=== PATIENT | male | born 1960 | race Caucasian/White ===

== ENCOUNTER 2017-06-18 12:24 | Observation (INO) ==
[2017-06-18] MEDS ORDERED: SALINE FLUSH 10ml SYRINGE IVF PRN (12:34)
--- NOTE | 2017-06-18 12:59 | Emergency Department Report ---
Chest Pain HPI - General Chief Complaint: Chest Pain <Basim Hdz Q - 06/19/17 07:10> Stated Complaint: CP <Basmi Hdz Q - 06/19/17 07:10> Time Seen by Provider: 06/18/17 12:30 <Basim Hdz Q - 06/19/17 07:10> Source: patient, family, EMS, old records reviewed <Shahida Coles E - 12:59> Mode of arrival: wheelchair <Shahida Coles E - 06/18/17 12:59> Limitations: no limitations <Shahida Coles E - 06/18/17 12:59> - History of Present Illness HPI narrative: Patient presents by EMS with complaints of chest pain to the left sternal area that started approximately 90 minutes ago. Patient states pain came on suddenly while he was "scrubbing the floors" however states he was not exerting himself. Pain is constant for the past 90 minutes with intensity changes periodically. Pain ranges from a 4 to an 8. Patient took 3 ntg before EMS arrival which states did not help and took one 81 mg asa. Was given 3 additional 81 mg asa by EMS; ntg was not repeated by EMS. 3 additional NTG were given by ER an hour after initial ntg and again no relief. Baseline pain is 3-4/10 and maximum pain is 8/10 Patient states there is nothing that he remembers that makes the pain worse however when asked to deep breathe he does state that the pain is much worse with inspiration. Pain does not radiate at this time. Patient states the intensity increases for about 15 seconds and then subsides. During the time of my exam, patient does have an episode of the intense chest pain where he suddenly appears uncomfortable and this lasts about 15 seconds and then subsides. Patient states had been short of air and experienced nausea earlier but not now. Denies diaphoresis. Patient states did have stents placed approximately 5 years ago and has not had chest pain since that time. Patient last saw Dr. Pool out 2 weeks ago or a general checkup. He did have a CVA during the same hospitalization when he received the stents that resulted in some left facial residual that is noted upon exam. Patient's son and patient both say that this is baseline for him. No other neurological changes. He does state that he had colon cancer within the past 2 years that resulted in a temporary colostomy that has since been reversed. He denies any history of pulmonary embolism . Patient also reports hx of "fluid around the heart" <Shahida Coles - 06/18/17 13:52> Occurred At: home <Shahida Coles - 06/18/17 12:59> Onset (ago): minute(s) (90) <Shahida Coles 06/18/17 12:59> - Related Data Home Medications Medication Instructions Recorded Confirmed Nitroglycerin 0.4 mg SL Q5MIN3 PRN #0 12/10/09 06/18/17 Aspirin [Aspirin EC] 81 mg PO DAILY 06/18/17 06/18/17 Atenolol [Tenormin] 25 mg PO DAILY 06/18/17 06/18/17 Atorvastatin Calcium [Atorvastatin 10 mg PO HS 06/18/17 06/18/17 Calcium] Escitalopram [Lexapro] 10 mg PO BID 06/18/17 06/18/17 Insulin Aspart [NovoLOG] 6 unit SQ TIDWM 06/18/17 06/18/17 Insulin Detemir [Levemir] 16 unit SQ HS 06/18/17 06/18/17 Lisinopril [Prinivil] 5 mg PO DAILY 06/18/17 06/18/17 Metformin HCl [Metformin HCl] 1,000 mg PO BID 06/18/17 06/18/17 <Basim Hdz Q - 06/19/17 07:10> Allergies Allergy/AdvReac Type Severity Reaction Status Date / Time No Known Drug Allergies Allergy Unknown Verified 06/18/17 13:12 <Basim Hdz Q - 06/19/17 07:10> Review of Systems All systems: reviewed and negative except as stated <Shahida Coles 13:59> Constitutional: Reports: as per HPI. Denies: fever, chills <Shahida Coles 06/18/17 13:59> Eyes: Denies: eye pain, eye discharge <Shahida Coles 06/18/17 13:59> ENT: Denies: ear pain, throat pain <Shahida Coles 06/18/17 13:59> Cardiovascular: Reports: as per HPI, chest pain. Denies: palpitations, syncope <Shahida Coles 06/18/17 13:59> Respiratory: Denies: cough, dyspnea <Shahida Coles 06/18/17 13:59> Gastrointestinal: Denies: abdominal pain, nausea, vomiting <Shahida Coles 06/18/17 13:59> Genitourinary: Denies: urgency, dysuria <Shahida Coles 06/18/17 13:59> Musculoskeletal: Denies: back pain, joint swelling <Shahida Coles 13:59> Neurological: Denies: headache, weakness <Shahida Coles 06/18/17 13:59> Endocrine: Denies: fatigue <Shahida Coles 06/18/17 13:59> FORMERLY [facility] Patient Stated Medical History Cerebrovascular Accident Yes Cardiac Arrhythmia No Congestive Heart Failure No Hypertension Yes Myocardial Infarction No Other Cardiology Yes: hx fluid around heart Diabetes Mellitus Type 1 No Diabetes Mellitus Type 2 Yes Gastroesophageal Reflux Yes Disease Hx Kidney Stones Yes Other Musculoskeletal Yes: shattered L big toe; plate and 3 screws Depression Yes Recreational Drug Use No <Basim Hdz Q 06/19/17 07:10> Patient Stated Medical History Cerebrovascular Accident Yes Cardiac Arrhythmia No Congestive Heart Failure No Hypertension Yes Myocardial Infarction No Other Cardiology Yes: hx fluid around heart Diabetes Mellitus Type 1 No Diabetes Mellitus Type 2 Yes Gastroesophageal Reflux Yes Disease Hx Kidney Stones Yes Other Musculoskeletal Yes: shattered L big toe; plate and 3 screws Depression Yes Recreational Drug Use No <Shahida Coles 06/18/17 13:39> Physical Exam - Limitations Limitations: no limitations <Shahida Coles 06/18/17 13:59> - General General appearance: alert, in no apparent distress <Shahida Coles 13:59> - Normal Exams: Head:: Normocephalic without trauma <Shahida Coles 06/18/17 13:59> Eyes:: Pupils are PERRLA w/ EOMI <Shahida Coles 06/18/17 13:59> ENMT:: No facial trauma, nasal exudates, pharyngeal erythema, or exudates are noted <SanketShahida E 06/18/17 13:59> Neck:: Full range of motion, without adenopathy, JVD, bruits or thyromegaly < Coles,Shahida John 06/18/17 13:59> Chest/Respirations:: Clear all [place], with good airflow <Coles,Shahida John 06/18/17 13:59> Cardiovascular:: Regular rate and rhythm, without murmur or gallop, capillary refill <Coles,Shahida John 06/18/17 13:59> Abdomen:: Bowel sounds positive, soft, non-tender, non-distended <Shahida Coles John 06/18/17 13:59> Musculoskeletal:: No tenderness, or deformity noted, good range of motion < Coles,Shahida John 06/18/17 13:59> Neurological:: Patient is alert, and oriented, cranial nerves, motor/sensory/ cerebellar, exams w/o gross deficits, to observation <Shahida Coles 06/18 13:59> Psychiatric:: Patient exhibits, appropriate attention, emotion and affect < Coles,Shahida John 06/18/17 13:59> - Expanded Skin Exam Type of lesion: Present: other (chronic wound to left second toe; followed by wound care ) <SanketShahida E 06/18/17 13:59> Course Course Narrative: Patient's chest pain was never below a 3/10 following a total of 6 nitroglycerin. eKG showed no acute changes. Patient's troponin was negative. D-dimer was also normal. Chest x-ray also did not show any infiltrate or abnormalities. Discussed case with Dr. Pool who feels the patient needs to be admitted for observation, would like hospitalist service to admit in consult him. <Shahida Coles 06/18/17 13:48> - Consultations Consultation #1: Dr Pool <Shahida Coles 06/18/17 13:48> Time: 13:35 (admit to hospitalist/ consult ) <Shahida Coles 06/18/17 13: 48> Consultation #2: Dr Vilchis <Shahida Coles - 06/18/17 13:54> Time: 13:50 (will admit ) <Shahida Coles - 06/18/17 13:54> Vital Signs Temperature 98.9 F 06/18/17 12:43 Pulse Rate 65 06/18/17 12:43 Respiratory Rate 24 06/18/17 12:43 Blood Pressure 165/82 H 06/18/17 12:43 Pulse Oximetry 98 06/18/17 12:43 Temperature 97.5 F 06/19/17 00:00 Pulse Rate 59 L 06/19/17 04:01 Respiratory Rate 16 06/19/17 04:01 Blood Pressure 159/94 H 06/19/17 04:01 Pulse Oximetry 97 06/19/17 04:01 <Basim Hdz - 06/19/17 07:10> Chest Pain - MDM Narrative Medical decision making narrative: CP 3/10 at baseline after ntg x6 and asa 324. Will admit for observation <Shahida Coles - 06/18/17 13:54> - Differential Diagnosis Likely: stable angina, unstable angina pectoris, atypical chest pain, costochondritis, chest pain <Shahida Coles - 06/18/17 13:54> - Medical Records Data Attestation: I reviewed the patient's medical records. <Shahida Coles - 13:54> - Lab Data Attestation: I reviewed the patient's lab results. <Robe Colesnie John - 13:54> Result diagrams: 06/19/17 06:01 06/19/17 06:01 <Basim Hdz - 06/19/17 07:10> Lab Results 06/18/17 06/18/17 06/18/17 Range/Units 12:42 12:51 12:51 WBC 9.4 (4.5-11.0) T/MM3 RBC 4.01 L (4.50-5.90) M/MM3 Hgb 13.1 L (13.5-17.5) GM/DL Hct 38.0 L (41-53) % MCV 94.8 (80-100) UM3 MCH 32.7 (26-34) UUG MCHC 34.5 (31-37) GM/DL RDW Std Deviation 42.7 (36.9-50.2) FL Plt Count 181 (130-400) T/MM3 MPV 9.7 (9.4-12.4) UM3 Immature Gran % (Auto) 0.2 (0.0-0.5) % Neut % (Auto) 71.3 H (33-66) % Lymph % (Auto) 18.6 L (23-45) % Morrison % (Auto) 6.5 (0-9.0) % Eos % (Auto) 3.0 (0-4) % Baso % (Auto) 0.4 (0-2) % Neut # (Auto) 6.7 (1.8-7.7) T/MM3 Lymph # (Auto) 1.8 (1-4.8) T/MM3 Morrison # (Auto) 0.6 (0-0.8) T/MM3 Eos # (Auto) 0.3 (0-0.5) T/MM3 Baso # (Auto) 0.0 (0-0.2) T/MM3 Abs Immat Gran (auto) 0.02 (0.00-0.03) T/MM3 D-Dimer < 150 (0-230) NG/ML Turbidity < 20 (0-20) Sodium 144 (134-144) MEQ/L Potassium 4.8 (3.6-5) MEQ/L Chloride 111 H (98-107) MEQ/L Carbon Dioxide 19 L (22-30) MEQ/L Anion Gap 14 (5-15) MEQ/L BUN 19.0 (9-20) MG/DL Creatinine 1.0 (0.8-1.5) MG/DL GFR Calculation 77 BUN/Creatinine Ratio 19 (6-26) RATIO Glucose 132 H (75-110) MG/DL Calculated Osmolality 281 H (261-280) MOSM/KG Calcium 9.8 (8.4-10.2) MG/DL Total Bilirubin 0.20 (0.20-1.30) MG/DL Icterus Index < 2 (0-7) AST 22 (17-59) U/L ALT 33 (21-72) U/L Alkaline Phosphatase 94 (38-126) U/L Troponin I < 0.012 (0-0.12) ng/ml B-Natriuretic Peptide 1140 H (0-175) pg/mL Total Protein 7.2 (6.3-8.2) G/DL Albumin 4.0 (3.5-5.0) G/DL Globulin 3.2 (2.4-3.6) G/DL Albumin/Globulin Ratio 1.3 (1.1-2.2) RATIO Specimen Hemolysis < 15 (0-25) <WilderBasim Q - 06/19/17 07:10> Lab Results 06/18/17 06/18/17 06/18/17 Range/Units 12:42 12:51 12:51 WBC 9.4 (4.5-11.0) T/MM3 RBC 4.01 L (4.50-5.90) M/MM3 Hgb 13.1 L (13.5-17.5) GM/DL Hct 38.0 L (41-53) % MCV 94.8 (80-100) UM3 MCH 32.7 (26-34) UUG MCHC 34.5 (31-37) GM/DL RDW Std Deviation 42.7 (36.9-50.2) FL Plt Count 181 (130-400) T/MM3 MPV 9.7 (9.4-12.4) UM3 Immature Gran % (Auto) 0.2 (0.0-0.5) % Neut % (Auto) 71.3 H (33-66) % Lymph % (Auto) 18.6 L (23-45) % [place] % (Auto) 6.5 (0-9.0) % Eos % (Auto) 3.0 (0-4) % Baso % (Auto) 0.4 (0-2) % Neut # (Auto) 6.7 (1.8-7.7) T/MM3 Lymph # (Auto) 1.8 (1-4.8) T/MM3 [place] # (Auto) 0.6 (0-0.8) T/MM3 Eos # (Auto) 0.3 (0-0.5) T/MM3 Baso # (Auto) 0.0 (0-0.2) T/MM3 Abs Immat Gran (auto) 0.02 (0.00-0.03) T/MM3 D-Dimer < 150 (0-230) NG/ML Turbidity < 20 (0-20) Sodium 144 (134-144) MEQ/L Potassium 4.8 (3.6-5) MEQ/L Chloride 111 H (98-107) MEQ/L Carbon Dioxide 19 L (22-30) MEQ/L Anion Gap 14 (5-15) MEQ/L BUN 19.0 (9-20) MG/DL Creatinine 1.0 (0.8-1.5) MG/DL GFR Calculation 77 BUN/Creatinine Ratio 19 (6-26) RATIO Glucose 132 H (75-110) MG/DL Calculated Osmolality 281 H (261-280) MOSM/KG Calcium 9.8 (8.4-10.2) MG/DL Total Bilirubin 0.20 (0.20-1.30) MG/DL Icterus Index < 2 (0-7) AST 22 (17-59) U/L ALT 33 (21-72) U/L Alkaline Phosphatase 94 (38-126) U/L Troponin I < 0.012 (0-0.12) ng/ml B-Natriuretic Peptide 1140 H (0-175) pg/mL Total Protein 7.2 (6.3-8.2) G/DL Albumin 4.0 (3.5-5.0) G/DL Globulin 3.2 (2.4-3.6) G/DL Albumin/Globulin Ratio 1.3 (1.1-2.2) RATIO Specimen Hemolysis < 15 (0-25) <Shahida Coles 06/18/17 13:39> - Radiology Data Attestation: I reviewed the patient's radiology results. <Shahida Coles 06/18/17 13:54> - EKG Data EKG #1 EKG attestation: Yes: I reviewed and interpreted this EKG. <Basim Hdz 06/19/17 07:10> EKG shows normal: sinus rhythm <Basim Hdz 06/19/17 07:10> Rate: normal <Basim Hdz Q 06/19/17 07:10> Rhythm: NSR <Basim Hdz Q 06/19/17 07:10> [place]/QRS: normal <Basim Hdz 06/19/17 07:10> Interpretation: no acute changes <Basim Hdz Q 06/19/17 07:10> - Core Measures AMI core measures followed: Yes <Shahida Coles - 06/18/17 13:54> Critical Care Time Critical Care Time: No <Shahida Coles 06/18/17 13:59> Disposition Clinical Impression: Chest pain <Basim Hdz Q 06/19/17 07:10> Disposition: 02 To OBS [facility] [place] <Basim Hdz 06/19/17 07:10> Condition: Stable <Basim Hdz 06/19/17 07:10> Instructions: <Basim Hdz 06/19/17 07:10> Prescriptions: No Action Lisinopril [Prinivil] 5 mg PO DAILY Atorvastatin Calcium [Atorvastatin Calcium] 10 mg PO HS Atenolol [Tenormin] 25 mg PO DAILY Metformin HCl [Metformin HCl] 1,000 mg PO BID Insulin Detemir [Levemir] 16 unit SQ HS Aspirin [Aspirin EC] 81 mg PO DAILY Insulin Aspart [NovoLOG] 6 unit SQ TIDWM Nitroglycerin 0.4 mg SL Q5MIN3 PRN #0 PRN Reason: Chest Pain Escitalopram [Lexapro] 10 mg PO BID <Basim Hdz Q - 06/19/17 07:10> Referrals: Katia Saez MD [Family Provider] - <Basim Hdz Q - 07:10> Forms: <Basim Hdz 06/19/17 07:10> - Seen By: midlevel <Shahida Coles - 06/18/17 13:59> Addendum entered and electronically signed by Shahida Coles APRN 06/18/17 14:01: physical exam should state left sided facial weakness that is normal for patient.
--- NOTE | 2017-06-18 13:08 | XRay Report ---
Indication: chest pain XR chest 1V: Comparison: CT chest 02/26/2013 Technique: Single AP upright chest Findings: Patient showed normal heart, mediastinum and central vascularity. Lungs are clear. No acute bony findings. Impression: No acute cardiopulmonary findings. .
[2017-06-18] MEDS: NITROGLYCERIN 0.4 MG SUBLINGUAL TABLET SL PRN ×3 (13:17→13:29)
[2017-06-18] MEDS ORDERED: NITROGLYCERIN 0.4 MG SUBLINGUAL TABLET SL PRN (14:47)
--- NOTE | 2017-06-18 14:49 | History & Physical Report ---
History of Present Illness Date: 06/18/17 Chief complaint: chest pain HPI: Mr. Cintron is a 56 year old who developed severe, stabbing left sided chest pain that went down his left arm while cleaning wax off the floor this morning. He also felt diaphoretic, short of breath, nauseated, lightheaded. He thought he might pass out. His niece noted that his color was very poor. He states that otherwise he's been in his typical state of health, but his son interjected and noted he recently started seeing wound care for an ulcer on the second toe of his left foot and also stated that he's been fatigued over the weekend and sleeping more. This is unusual for Geraldo. His family activated 911 and he received NTG x1 and ASA 324 mg en route to [facility]. Upon arrival to the ED, he received another 3 doses of NTG and a baby ASA. His pain decreased to 3/10 but never completely subsided. Troponin was <0.012. EKG showed NSR with nonspecific T wave abnormality. CXR was unremarkable. CBC showed mild normocytic anemia with hgb of 13.1. BNP was 1140. Chemistries were stable. He last had a hgb A1c drawn on 05/04/17 which was 5.6%. Dr. Pool was consulted from the ED and recommended admission; at that time the hospitalist service was contacted and agreed with admission. Review of Systems All systems PM: 10-point ROS was reviewed, no additional remarkable complaints except - Constitutional Constitutional: Present: fatigue. Absent: chills, fever(s) - EENMT Eyes: Present: requires corrective lenses Balance: Absent: vertigo Nose: Absent: obstruction Mouth/Throat: Absent: sore throat, changes in swallowing - Cardiovascular Cardiovascular: Present: chest pain Vascular: Absent: pedal edema, unilateral swelling - Respiratory Respiratory: Present: dyspnea. Absent: cough - Gastrointestinal Gastrointestinal: Present: other (tends to have loose stools - chronic). Absent : abdominal pain, constipation, hematochezia, nausea, vomiting - Genitourinary Genitourinary: Absent: dysuria, hematuria - Musculoskeletal Musculoskeletal: Absent: muscle weakness - Integumentary/Breasts Integumentary: Present: wounds (mild abrasions to hands/lower ext.). Absent: rash - Neurological Neurological: Present: memory loss (forgetful at times per son). Absent: confusion, frequent falls, headache(s), weakness - Psychiatric Psychiatric: Absent: anxiety - Endocrine Endocrine: Absent: excessive sweating - Hematologic/Lymphatic Hematologic/Lymphatic: Present: easy bleeding, easy bruising - Allergic/Immunologic Allergic/Immunologic: Absent: seasonal rhinorrhea Past Medical History DM2 with [place] Grade 3 ulcer to left 2nd toe plantar surface Past history of right foot osteomyelitis CAD History of pericarditis 2014 HTN Hyperlipidemia Adenocarcinoma of rectum (T2N1 stage III) treated with chemotherapy and neoadjuvant chemoradiation of the pelvis followed by surgery, with surgical complication of staph infection History of stroke with platelet disorder (via platelet inhibition study) requiring higher dose of Plavix Depression GERD Kidney stone Obesity BMI 32.0 Surgical History: LAD stent 2009. Right myringotomy. Tonsillectomy. Laporascopic cholecystectomy [address] Catalan. Vasectomy [address] Dr. Tipton. B/ L carpal tunnel release 1993 Dr. Estrada. Port-a-cath insertion and removal. Skin graft left thumb 1984. low anterior colon resection with mobilization of splenic flexure in 2010 with subsequent colostomy takedown [place] [address] [facility] at [facility]. Path showed reactive fibrosis without residual adenocarcinoma but adenocarcinoma present in 05/06 lymph nodes. Vitrectomy right eye 2010 Dr. Doan. Colonoscopy 2010 Dr. Catalan - showed rectal mass /adenocarcinoma Family History Updates: Father in his 70s of Alzheimer's. Mother in her 70s of heart disease and diabetes. His only sister of Alzheimer's. One of his 3 brothers of throat cancer; he also had diabetes. One brother is in a LTCF for Alzheimer's. The other brother has diabetes. - Social History Smoking status: Never smoker Substance use type: does not use Alcohol intake frequency: does not drink Household members: other () Current occupation: supervisor title [employer] Does patient use chewing tobacco?: Yes Medications Home Medications Medication Instructions Recorded Confirmed Type Nitroglycerin 0.4 mg SL Q5MIN3 PRN #0 12/10/09 06/18/17 History Aspirin [Aspirin EC] 81 mg PO DAILY 06/18/17 06/18/17 History Atenolol [Tenormin] 25 mg PO DAILY 06/18/17 06/18/17 History Atorvastatin Calcium [Atorvastatin 10 mg PO HS 06/18/17 06/18/17 History Calcium] Escitalopram [Lexapro] 10 mg PO BID 06/18/17 06/18/17 History Insulin Aspart [NovoLOG] 6 unit SQ TIDWM 06/18/17 06/18/17 History Insulin Detemir [Levemir] 16 unit SQ HS 06/18/17 06/18/17 History Lisinopril [Prinivil] 5 mg PO DAILY 06/18/17 06/18/17 History Metformin HCl [Metformin HCl] 1,000 mg PO BID 06/18/17 06/18/17 History Allergies Allergy/AdvReac Type Severity Reaction Status Date / Time No Known Drug Allergies Allergy Unknown Verified 06/18/17 13:12 Exam Vital Signs: Temperature 98.2 F 06/18/17 14:14 Pulse Rate 62 06/18/17 14:14 Respiratory Rate 16 06/18/17 14:14 Blood Pressure 162/81 H 06/18/17 14:14 Pulse Oximetry 96 06/18/17 14:14 Telemetry Rhythm: Sinus Rhythm - Constitutional Present: no acute distress, well nourished, well developed - Routine HEENT Exam Head: Present: normocephalic Eye: Present: PERRL. Absent: conjunctival icterus, scleral injection ENT: Present: mucous membranes moist, oropharynx clear - Routine Neck Exam Present: supple - Routine Respiratory Exam Present: CTA bilaterally - Routine Cardiovascular Exam Present: RRR, S1, S2 - Routine Abdominal Exam Present: soft, normoactive bowel sounds, non distended, non tender - Routine Extremities Exam Present: no edema, pulses intact - Routine Skin Exam Present: intact, dry, warm, wounds (ulcer to left 2nd toe; abrasions left hand; both shins) - Routine Neurological Exam Present: alert, oriented X3, normal speech - Routine Psychiatric Exam Present: normal affect, normal thought process, cooperative Results - Labs CBC & Chem 7: 06/18/17 12:51 06/18/17 12:51 Assessment and Plan (1) Chest pain Current visit: Yes Status: Acute Assessment and Plan: Impression Chest pain DM2 with [place] Grade 3 ulcer to left 2nd toe plantar surface Past history of right foot osteomyelitis CAD History of pericarditis 2014 HTN Hyperlipidemia Adenocarcinoma of rectum (T2N1 stage III) treated with chemotherapy and neoadjuvant chemoradiation of the pelvis followed by surgery, with surgical complication of staph infection History of stroke with platelet disorder (via platelet inhibition study) requiring higher dose of Plavix Depression GERD Kidney stone Obesity BMI 32.0 Plan Admit, observation status, under the hospitalist service. Consult Dr. Pool. Trend troponin, monitor rhythm on telemetry. Continue ASA, statin, SIDNEY, and BB. Check lipids in am. Monitor blood sugars and resume home insulin schedule Consult wound team for family concern of left toe ulcer. Care to be returned to Dr. Saez at time of discharge. DVT Prophylaxis: SCD's Resuscitation Status: Full Code - Physician Narrative Physician: Dexter Vilchis MD Narrative: Date: 06/18/17 Time: 1720 Have independently interviewed and examined pt. Chart reviewed. Case discussed with ED physician and my PHARMACISTS. Care plan developed with my supervision; agree with above. Presents to ED secondary to chest pain. Reports pain to left side of chest- sharp and knife like without radiation. Onset acutely this morning while at work -had changed out a wax ring on a toilet yesterday, and today was on the floor scrubbing up the mess. [place] nausea without emesis. Some SOA. Typical state of health prior to pain onset. No recent trauma. No recent viral syndrome. Has had slight cough for last weeks. Appetite and bowels stable. Lungs: clear bilaterally, no distress CV: regular with occasional ectopic beat ; Chest wall-point tender to left of sternal margin, pain similar to presenting pain. AB: soft nt/nd +BS MSE: awake alert appropriate Plan: OBS to exclude AMI. Tele. Serial enzymes. Consult with Dr Pool for cardiac evaluation. Continue home medications, holding metformin in case cath needed. SCD for DVT prevention. Monitor sugars. Full code. Care to return to Dr Saez at time of discharge from [facility]. Hospital Course Summary Disclaimer: The visit summary below is not to be considered part of the above Progress Note. Hospital Course: 06/18/17 Admit, observation status, under the hospitalist service. Consult Dr. Pool. Trend troponin, monitor rhythm on telemetry. Continue ASA, statin, SIDNEY, and BB. Check lipids in am. Monitor blood sugars and resume home insulin schedule Consult wound team for family concern of left toe ulcer.
[2017-06-18 14:50] VITALS: BMI 32.0
--- NOTE | 2017-06-18 15:53 | Cardiology Consult Note ---
<LazarusJuly Yvonne - Last Filed: 06/18/17 19:18> History of Present Illness Consult reason: known to you History of present illness: Mr. Geraldo Cintron is a 56 year old male who is known to Dr. Familia Pool with a history of CAD with prior stent, HTN and DM2. Pt says this morning at work he was scrubbing floors to get wax off. A short time after that he started to feel lightheaded, sweaty, shortness of air and chest pain under left breast. Chest pain was sudden onset and stabbing pain (10/10) that radiated towards the left arm and back of the neck on the right side. He left work to go home to get NTG - he took 3 nitro at home and 1 baby ASA with no relief. He went back to work and his niece said he was pale - took BP and it was over 210 systolic. Pt denied vision symptoms or headache. Then, ambulance arrived and [place] [facility] [place] given 3 baby ASA and 1 NTG. In ER, pt said chest pain would happen in 15-30 second spurts of fluctuation between 5/10 pain to 10/10 pain. Pt said stress and deep inspiration aggravates it. Pt said NTG has not alleviated the CP completely - only has decreased it a little. In ER, pt 's troponin was negative and D dimer was normal. Pt currently says chest pain has started to mellow out. Pt denies heart palpitations, shortness of air, dizziness/lightheadedness at this time. Pt is on room air. Pt said over the weekend he was very tired and was sleeping during the day, which is unlike him. Pt said he had a fall down the stairs 3 weeks ago. Pt had an office visit to Dr. Familia Pool for a follow up visit on 06/04/17 with no complaints. Lipitor 10mg was added to his regimen and pt states he has been taking that daily with no side effects. Review of Systems All systems PM: 10-point ROS was reviewed, no additional remarkable complaints except PFSH Surgical History: LAD stent 2009. Right myringotomy. Tonsillectomy. Laporascopic cholecystectomy [address] Catalan. Vasectomy [address] Dr. Tipton. B/ L carpal tunnel release 1993 Dr. Estrada. Port-a-cath insertion and removal. Skin graft left thumb 1984. low anterior colon resection with mobilization of splenic flexure in 2010 with subsequent colostomy takedown [place] [address] Mason at [facility]. Path showed reactive fibrosis without residual adenocarcinoma but adenocarcinoma present in 05/06 lymph nodes. Vitrectomy right eye 2010 Dr. Doan. Colonoscopy 2010 Dr. Catalan - showed rectal mass /adenocarcinoma - Social History Smoking status: Never smoker Does patient use chewing tobacco?: Yes Medications Home Medications Medication Instructions Recorded Confirmed Type Nitroglycerin 0.4 mg SL Q5MIN3 PRN #0 12/10/09 06/18/17 History Aspirin [Aspirin EC] 81 mg PO DAILY 06/18/17 06/18/17 History Atenolol [Tenormin] 25 mg PO DAILY 06/18/17 06/18/17 History Atorvastatin Calcium 10 mg PO HS 06/18/17 06/18/17 History Escitalopram [Lexapro] 10 mg PO BID 06/18/17 06/18/17 History Insulin Aspart [NovoLOG] 6 unit SQ TIDWM 06/18/17 06/18/17 History Insulin Detemir [Levemir] 16 unit SQ HS 06/18/17 06/18/17 History Lisinopril [Prinivil] 5 mg PO DAILY 06/18/17 06/18/17 History Metformin HCl 1,000 mg PO BID 06/18/17 06/18/17 History Allergies Allergy/AdvReac Type Severity Reaction Status Date / Time No Known Drug Allergies Allergy Unknown Verified 06/18/17 13:12 Exam Vital signs: Temperature 97.7 F 06/18/17 14:48 Pulse Rate 61 06/18/17 14:48 Respiratory Rate 12 06/18/17 14:48 Blood Pressure 172/93 H 06/18/17 14:48 Pulse Oximetry 98 06/18/17 14:48 - Constitutional no acute distress, well developed, cooperative - Routine HEENT Exam Head: Present: normocephalic, atraumatic Eye: Present: EOMI, PERRL ENT: Present: mucous membranes moist - Routine Neck Exam Present: supple, full ROM, normal carotid upstroke. Absent: JVD, carotid bruit - Routine Chest/Breast/Axilla Exam Chest wall: Present: tenderness (reproducible chest wall tenderness to palpation ) - Routine Respiratory Exam Present: CTA bilaterally. Absent: rhonchi, wheezes, crackles - Routine Cardiovascular Exam Present: S4, irregular rhythm. Absent: JVD (slightly irregular due to premature beats) - Routine Abdominal Exam Present: soft, normoactive bowel sounds, non tender. Absent: organomegaly, mass - Routine Extremities Exam Present: no edema, pulses intact, normal capillary refill. Absent: cyanosis, clubbing - Routine Skin Exam Present: intact, dry, wounds (ulcer to left 2nd toe). Absent: cyanosis, erythema - Routine Neurological Exam Present: alert, oriented X3, CN II-XII intact, moving all extremities, vision grossly intact, hearing grossly intact, normal speech - Routine Psychiatric Exam Present: normal affect, cooperative Results 06/18/17 12:51 06/18/17 12:51 Intake and Output 06/18/17 06/18/17 06/18/17 06:59 14:59 22:59 Other: Weight 82 kg Patient Weight 06/19/17 06:59 Weight 82 kg - Imaging and Cardiology EKG results: image reviewed (SR in 60s with non specific T wave abnormalities in aVL) Imaging & Cardiology Narrative: 06/18/17 16:29 CXR from 06/18/17 - No acute cardiopulmonary findings. Assessment and Plan - Assessment and Plan non cardiac CP reproducible to palpation - consider rib fractures CAD with prior stent - no evidence of ACS Should be able to go home tomorrow. Pt was personally seen and interviewed by Dr. Familia Pool who agreed with the A& P. Hospital Course Summary Disclaimer: The visit summary below is not to be considered part of the above Progress Note. Hospital Course: 06/18/17 Admit, observation status, under the hospitalist service. Consult Dr. Pool. Trend troponin, monitor rhythm on telemetry. Continue ASA, statin, SIDNEY, and BB. Check lipids in am. Monitor blood sugars and resume home insulin schedule Consult wound team for family concern of left toe ulcer. <Mahad Pool - Last Filed: 06/25/17 21:51> History of Present Illness History of present illness: Cp was continuous since admission. [facility] Patient Stated Medical History Cerebrovascular Accident Yes Cataracts Yes Hearing Loss Yes Angina Yes Cardiac Arrhythmia Yes Hypertension Yes Other Cardiology Yes: hx fluid around heart Diabetes Mellitus Type 1 No Diabetes Mellitus Type 2 Yes Gastroesophageal Reflux Yes Disease Hx Kidney Stones Yes: 10 plus years ago. Other Musculoskeletal Yes: shattered L big toe; plate and 3 screws Shingles Yes: 2005 Depression Yes Exam Vital signs: Temperature 97.7 F 06/18/17 14:48 Pulse Rate 60 06/18/17 16:00 Respiratory Rate 12 06/18/17 14:48 Blood Pressure 172/93 H 06/18/17 14:48 Pulse Oximetry 98 06/18/17 14:48 Results 06/19/17 06:01 06/19/17 06:01 Cardiac Enzymes 06/18/17 Range/Units 18:07 Troponin I < 0.012 (0-0.12) ng/ml Intake and Output 06/18/17 06/18/17 06/18/17 06:59 14:59 22:59 Intake Total 230 / 230 Balance 230 / 230 Intake: Oral 230 / 230 Other: Stool Color Brown Stool Consistency Soft Formed Size of Bowel Movement Large # Voids 1 # Bowel Movements 1 Weight 82 kg Patient Weight 06/19/17 06:59 Weight 82 kg Assessment and Plan - Assessment and Plan I personally interviewed and examined pt and agree with the above Hospital Course Summary Disclaimer: The visit summary below is not to be considered part of the above Progress Note.
[2017-06-18] MEDS: INSULIN ASPART 100unit/ml INJECTION SQ SCH (18:42)
[2017-06-18] MEDS ORDERED: ATORVASTATIN 10 MG TABLET PO SCH (21:00)
[2017-06-18] MEDS ORDERED: INSULIN DETEMIR 100unit/ml INJECTION SQ SCH (21:00)
[2017-06-18] MEDS: ESCITALOPRAM 10 MG TABLET PO SCH (21:59)
[2017-06-19 00:03] VITALS: RESP 16
[2017-06-19 04:02] VITALS: O2SAT 97
[2017-06-19 07:31] VITALS: BP 167/93; TEMP 96.9
[2017-06-19 08:04] VITALS: PULSE 55
[2017-06-19] MEDS ORDERED: ASPIRIN *EC* 81 MG TABLET PO SCH (09:00)
[2017-06-19] MEDS ORDERED: LISINOPRIL 5 MG TABLET PO SCH (09:00)
[2017-06-19] MEDS ORDERED: ATENOLOL 25 MG TABLET PO SCH (09:00)
[2017-06-19] MEDS: INSULIN ASPART 100unit/ml INJECTION SQ SCH ×2 (09:22→12:33)
[2017-06-19] MEDS: ESCITALOPRAM 10 MG TABLET PO SCH (09:23)
--- NOTE | 2017-06-19 11:57 | Progress Note ---
- Date 06/19/17 Subjective: F/U: Chest pain, CAD Doing well this morning. Notes some discomfort to chest with movement and to touch. No palpitations. Breathing well. Denies nausea or ab pain. No f/c. Objective Vital signs: Temperature 96.9 F 06/19/17 07:29 Pulse Rate 55 L 06/19/17 08:00 Respiratory Rate 16 06/19/17 07:29 Blood Pressure 167/93 H 06/19/17 07:29 Pulse Oximetry 97 06/19/17 07:29 Height/Weight/BMI: Height 1.6 m Weight 81.4 kg Body Mass Index 32.0 - Constitutional Present: no acute distress, well nourished, well developed, average body habitus , cooperative - Routine HEENT Exam Head: Present: normocephalic, atraumatic Eye: Present: EOMI, PERRL ENT: Present: mucous membranes moist - Routine Respiratory Exam Present: CTA bilaterally. Absent: respiratory distress - Routine Cardiovascular Exam Present: RRR, no murmur - Routine Abdominal Exam Present: soft, normoactive bowel sounds, non distended, non tender. Absent: guarding - Routine Extremities Exam Present: no edema, pulses intact. Absent: cyanosis, clubbing Comments: SCD present - Routine Musculoskeletal Exam Musculoskeletal: Present: no clubbing or cyanosis, normal strength - Routine Skin Exam Present: intact, dry, warm - Routine Neurological Exam Present: alert, oriented X3, CN II-XII intact, moving all extremities, vision grossly intact, hearing grossly intact, normal speech. Absent: motor deficit, altered mental status - Routine Psychiatric Exam Present: normal affect, normal thought process, cooperative Results - Labs CBC & Chem 7: 06/19/17 06:01 06/19/17 06:01 Assessment and Plan (1) Chest pain Current visit: Yes Status: Acute Assessment and Plan: Impression Chest pain - Costochondritis. No evidence of AMI DM2 with [place] Grade 3 ulcer to left 2nd toe plantar surface Past history of right foot osteomyelitis CAD HTN Hyperlipidemia Adenocarcinoma of rectum (T2N1 stage III) treated with chemotherapy and neoadjuvant chemoradiation of the pelvis followed by surgery, with surgical complication of staph infection History of stroke with platelet disorder (via platelet inhibition study) requiring higher dose of Plavix Depression GERD Kidney stone Obesity BMI 32.0 Plan Troponin negative. BP and HR stable. Pain varies with musculoskeletal movements and to touch. Will discharge to home. Dr Pool has evaluated patient and agrees with discharge. Continue current medications. Continue outpatient wound care as per Dr Álvarez. Follow up with Dr Saez in 1 week. See orders for details. Case discussed with MCKENZIE and Dr Pool. Time spent with patient care and discharge greater than 30 minutes. DVT Prophylaxis: SCD's Resuscitation Status: Full Code - Physician Narrative Physician: Dexter Vilchis MD Narrative: Date: 06/19/17 Time: 1152 Hospital Course Summary Disclaimer: The visit summary below is not to be considered part of the above Progress Note. Hospital Course: 06/18/17 Admit, observation status, under the hospitalist service. Consult Dr. Pool. Trend troponin, monitor rhythm on telemetry. Continue ASA, statin, SIDNEY, and BB. Check lipids in am. Monitor blood sugars and resume home insulin schedule Consult wound team for family concern of left toe ulcer. 06/19/17 Troponin negative. BP and HR stable. Pain varies with musculoskeletal movements and to touch. Will discharge to home for continuation of care. Dr Pool has evaluated patient and agrees with discharge. Continue current medications. Continue outpatient wound care as per Dr Álvarez. Follow up with Dr Saez in 1 week. See orders for details.
--- NOTE | 2017-06-19 13:13 | Cardiology Progress Note ---
<July Qiu L - Last Filed: 06/19/17 15:27> Exam Vital signs: Temperature 96.9 F 06/19/17 07:29 Pulse Rate 55 L 06/19/17 08:00 Respiratory Rate 16 06/19/17 07:29 Blood Pressure 167/93 H 06/19/17 07:29 Pulse Oximetry 97 06/19/17 07:29 Inpatient Medications: Generic Name Dose Route Start Last Admin Trade Name Ryder PRN Reason Stop Dose Admin Aspirin 81 mg 06/19/17 09:00 06/19/17 09:22 Ecotrin PO 81 mg DAILY SHAQ Administration Atenolol 25 mg 06/19/17 09:00 06/19/17 09:22 Tenormin PO 25 mg DAILY SHAQ Administration Atorvastatin Calcium 10 mg 06/18/17 21:00 06/18/17 21:59 Lipitor PO 10 mg HS SHAQ Administration Escitalopram Oxalate 10 mg 06/18/17 21:00 06/19/17 09:23 Lexapro PO 10 mg BID SHAQ Administration Insulin Aspart 6 unit 06/18/17 17:30 06/19/17 12:33 Novolog SQ 6 unit TIDWM SHAQ Administration Insulin Detemir 16 unit 06/18/17 21:00 06/18/17 22:00 Levemir SQ 16 unit HS SHAQ Administration Lisinopril 5 mg 06/19/17 09:00 06/19/17 09:23 Prinivil PO 5 mg DAILY SHAQ Administration Nitroglycerin 0.4 mg 06/18/17 14:47 Nitrostat SL Q5MIN3 PRN Chest pain Sodium Chloride 10 - 80 ml 06/18/17 12:34 06/18/17 22:00 Iv Flush IVF 10 ml PRN PRN Administration Flushing Discontinued Medications Generic Name Dose Route Start Last Admin Trade Name Ryder PRN Reason Stop Dose Admin Nitroglycerin 0.4 mg 06/18/17 12:34 06/18/17 13:29 Nitrostat SL 0.4 mg Q5MIN3 PRN Administration Chest pain - Constitutional no acute distress, well developed, cooperative - Routine HEENT Exam Head: Present: normocephalic, atraumatic Eye: Present: EOMI, PERRL ENT: Present: mucous membranes moist - Routine Neck Exam Present: supple, full ROM, normal carotid upstroke. Absent: JVD, carotid bruit - Routine Chest/Breast/Axilla Exam Chest wall: Present: tenderness (mildly tenderness to chest wall to palpation) - Routine Respiratory Exam Present: CTA bilaterally. Absent: rhonchi, stridor, crackles - Routine Cardiovascular Exam Present: S4, irregular rhythm (slight irregular due to premature beats) - Routine Abdominal Exam Present: soft, normoactive bowel sounds, non distended, non tender. Absent: rebound, guarding, organomegaly, mass - Routine Extremities Exam Present: no edema, pulses intact, normal capillary refill. Absent: cyanosis, clubbing - Routine Skin Exam Present: intact, dry, wounds (ulcer to left 2nd toe). Absent: cyanosis, erythema - Routine Neurological Exam Present: alert, oriented X3, CN II-XII intact, moving all extremities, vision grossly intact, hearing grossly intact, normal speech - Routine Psychiatric Exam Present: normal affect, cooperative Results 06/19/17 06:01 06/19/17 06:01 Cardiac Enzymes 06/18/17 06/18/17 06/19/17 Range/Units 18:07 23:51 06:01 Troponin I < 0.012 < 0.012 < 0.012 (0-0.12) ng/ml Lipids 06/19/17 Range/Units 06:01 Triglycerides 105 (40-160) MG/DL Cholesterol 108 L (132-199) MG/DL HDL Cholesterol 41 (40-60) MG/DL Cholesterol/HDL Ratio 2.6 (0-5.0) RATIO CBC 06/19/17 Range/Units 06:01 WBC 9.0 (4.5-11.0) T/MM3 RBC 4.19 L (4.50-5.90) M/MM3 Hgb 13.6 (13.5-17.5) GM/DL Hct 39.5 L (41-53) % Plt Count 186 (130-400) T/MM3 Neut # (Auto) 6.3 (1.8-7.7) T/MM3 Lymph # (Auto) 1.7 (1-4.8) T/MM3 [place] # (Auto) 0.6 (0-0.8) T/MM3 Eos # (Auto) 0.4 (0-0.5) T/MM3 Baso # (Auto) 0.0 (0-0.2) T/MM3 Comprehensive Metabolic Panel 06/19/17 Range/Units 06:01 Sodium 141 (134-144) MEQ/L Potassium 4.6 (3.6-5) MEQ/L Chloride 107 (98-107) MEQ/L Carbon Dioxide 25 D (22-30) MEQ/L BUN 19.0 (9-20) MG/DL Creatinine 1.0 (0.8-1.5) MG/DL Glucose 125 H (75-110) MG/DL Calcium 9.3 (8.4-10.2) MG/DL Intake and Output 06/18/17 06/19/17 06/19/17 22:59 06:59 14:59 Intake Total 430 / 430 50 / 50 240 / 240 Balance 430 / 430 50 / 50 240 / 240 Intake: Oral 430 / 430 50 / 50 240 / 240 Other: Stool Color Brown Stool Consistency Soft Formed Formed Size of Bowel Movement Large # Voids 1 1 1 # Bowel Movements 1 1 1 Weight 81.4 kg Patient Weight 06/20/17 06:59 Weight 81.4 kg - Imaging and Cardiology EKG results: image reviewed (sinus fernando in 50s with occasional PACs) Assessment and Plan - Assessment and Plan non cardiac CP reproducible to palpation - consider rib fractures CAD with prior stent - no evidence of ACS Clear from our standpoint to go home. Pt was personally seen and interviewed by Dr. Familia Pool who agreed with the A& P. Hospital Course Summary Disclaimer: The visit summary below is not to be considered part of the above Progress Note. Hospital Course: 06/18/17 Admit, observation status, under the hospitalist service. Consult Dr. Pool. Trend troponin, monitor rhythm on telemetry. Continue ASA, statin, SIDNEY, and BB. Check lipids in am. Monitor blood sugars and resume home insulin schedule Consult wound team for family concern of left toe ulcer. 06/19/17 Troponin negative. BP and HR stable. Pain varies with musculoskeletal movements and to touch. Will discharge to home for continuation of care if okay with Dr Pool. Continue current medications. Continue outpatient wound care as per Dr Álvarez. Follow up with Dr Saez in 1 week. See orders for details. <Mahad Pool - Last Filed: 06/25/17 22:04> Exam Vital signs: Temperature 96.9 F 06/19/17 07:29 Pulse Rate 55 L 06/19/17 08:00 Respiratory Rate 16 06/19/17 07:29 Blood Pressure 167/93 H 06/19/17 07:29 Pulse Oximetry 97 06/19/17 07:29 Inpatient Medications: Discontinued Medications Generic Name Dose Route Start Last Admin Trade Name Freq PRN Reason Stop Dose Admin Aspirin 81 mg 06/19/17 09:00 06/19/17 09:22 Ecotrin PO 81 mg DAILY SHAQ Administration Atenolol 25 mg 06/19/17 09:00 06/19/17 09:22 Tenormin PO 25 mg DAILY SHAQ Administration Atorvastatin Calcium 10 mg 06/18/17 21:00 06/18/17 21:59 Lipitor PO 10 mg HS SHAQ Administration Escitalopram Oxalate 10 mg 06/18/17 21:00 06/19/17 09:23 Lexapro PO 10 mg BID SHAQ Administration Insulin Aspart 6 unit 06/18/17 17:30 06/19/17 12:33 Novolog SQ 6 unit TIDWM SHAQ Administration Insulin Detemir 16 unit 06/18/17 21:00 06/18/17 22:00 Levemir SQ 16 unit HS SHAQ Administration Lisinopril 5 mg 06/19/17 09:00 06/19/17 09:23 Prinivil PO 5 mg DAILY SHAQ Administration Nitroglycerin 0.4 mg 06/18/17 12:34 06/18/17 13:29 Nitrostat SL 0.4 mg Q5MIN3 PRN Administration Chest pain Nitroglycerin 0.4 mg 06/18/17 14:47 Nitrostat SL Q5MIN3 PRN Chest pain Sodium Chloride 10 - 80 ml 06/18/17 12:34 06/18/17 22:00 Iv Flush IVF 10 ml PRN PRN Administration Flushing Results 06/19/17 06:01 06/19/17 06:01 Assessment and Plan - Assessment and Plan I have personally interviewed and examined the patient agree with above findings. I formulated the assessment and plan Hospital Course Summary Disclaimer: The visit summary below is not to be considered part of the above Progress Note.
--- NOTE | 2017-06-19 14:54 | Discharge Summary ---
Discharge Information Date of admission: 06/18/17 13:52 Anticipated date of discharge: 06/19/17 Attending Physician: Dexter Vilchis MD Primary care physician: Katia Saez MD Consults: Physician Consult: Mahad Pool Reason For Exam: Chest pain Wound [facility]in [facility] Consult Reason for consultation: left 2nd toe ulcer, followed in wound clinic - Discharge Diagnosis (1) Chest pain Status: Acute Discharge diagnosis Chest pain - Costochondritis. No evidence of AMI Associated conditions and complications DM2 with [place] Grade 3 ulcer to left 2nd toe plantar surface Past history of right foot osteomyelitis CAD HTN Hyperlipidemia Adenocarcinoma of rectum (T2N1 stage III) treated with chemotherapy and neoadjuvant chemoradiation of the pelvis followed by surgery, with surgical complication of staph infection History of stroke with platelet disorder (via platelet inhibition study) requiring higher dose of Plavix Depression GERD Kidney stone Obesity BMI 32.0 - Laboratory Labs: Admit Lab 06/18/17 12:51 WBC 9.4 Hgb 13.1 L Hct 38.0 L MCV 94.8 Plt Count 181 Neut % (Auto) 71.3 H Lymph % (Auto) 18.6 L [place] % (Auto) 6.5 Eos % (Auto) 3.0 Baso % (Auto) 0.4 Admit Lab 06/18/17 12:51 Sodium 144 Potassium 4.8 Chloride 111 H Carbon Dioxide 19 L Anion Gap 14 BUN 19.0 Creatinine 1.0 GFR Calculation 77 BUN/Creatinine Ratio 19 Glucose 132 H Calculated Osmolality 281 H Calcium 9.8 Total Bilirubin 0.20 AST 22 ALT 33 Alkaline Phosphatase 94 Troponin I < 0.012 B-Natriuretic Peptide 1140 H Total Protein 7.2 Albumin 4.0 Globulin 3.2 Albumin/Globulin Ratio 1.3 Lipid Profile 06/19/17 06:01 Triglycerides 105 Cholesterol 108 L LDL Cholesterol, Calc 46.0 L VLDL Cholesterol 21.0 HDL Cholesterol 41 Cholesterol/HDL Ratio 2.6 Troponin 06/18/17 06/18/17 06/18/17 12:51 18:07 23:51 Troponin I < 0.012 < 0.012 < 0.012 06/19/17 06:01 Troponin I < 0.012 06/19/17 06:01 06/19/17 06:01 - Radiology Radiology: Date of Exam: 06/18/17 Type of Exam: XR chest 1V Findings: Patient showed normal heart, mediastinum and central vascularity. Lungs are clear. No acute bony findings. Impression: No acute cardiopulmonary findings. History of Present Illness HPI: Mr. Cintron is a 56 year old who developed severe, stabbing left sided chest pain that went down his left arm while cleaning wax off the floor this morning. He also felt diaphoretic, short of breath, nauseated, lightheaded. He thought he might pass out. His niece noted that his color was very poor. He states that otherwise he's been in his typical state of health, but his son interjected and noted he recently started seeing wound care for an ulcer on the second toe of his left foot and also stated that he's been fatigued over the weekend and sleeping more. This is unusual for Geraldo. His family activated 911 and he received NTG x1 and ASA 324 mg en route to [facility] [place]. Upon arrival to the ED, he received another 3 doses of NTG and a baby ASA. His pain decreased to 3/10 but never completely subsided. Troponin was <0.012. EKG showed NSR with nonspecific T wave abnormality. CXR was unremarkable. CBC showed mild normocytic anemia with hgb of 13.1. BNP was 1140. Chemistries were stable. He last had a hgb A1c drawn on 05/04/17 which was 5.6%. Dr. Pool was consulted from the ED and recommended admission; at that time the hospitalist service was contacted and agreed with admission. For complete details of the H&P refer to that document. Objective Vital signs: Temperature 96.9 F 06/19/17 07:29 Pulse Rate 55 L 06/19/17 08:00 Respiratory Rate 16 06/19/17 07:29 Blood Pressure 167/93 H 06/19/17 07:29 Pulse Oximetry 97 06/19/17 07:29 Height/Weight/BMI: Height 1.6 m Weight 81.4 kg Body Mass Index 32.0 Hospital Course This is a general summary of the patient's hospital course. For more details refer to the complete medical record. Hospital course: 06/18/17 Admit, observation status, under the hospitalist service. Consult Dr. Pool. Trend troponin, monitor rhythm on telemetry. Continue ASA, statin, SIDNEY, and BB. Check lipids in am. Monitor blood sugars and resume home insulin schedule Consult wound team for family concern of left toe ulcer. Dr Pool consulted. Chest pain more musculoskeletal in nature than cardiac. Continue cardiac medications. 06/19/17 Troponin negative. BP and HR stable. Pain varies with musculoskeletal movements and to touch. Will discharge to home for continuation of care. Dr Pool has evaluated patient and agrees with discharge. Continue current medications. Continue outpatient wound care as per Dr Álvarez. Follow up with Dr Saez in 1 week. See orders for details. Time spent with patient: discharge greater than 30 minutes Resuscitation Status: Full Code Discharge Plan - Discharge Disposition Discharge Date: 06/19/17 Disposition: 01 Discharged Home, Self-Care *Condition: Stable Reason For Visit (Visit label in EMR): Chest pain-Rule out [place] - Discharge Medications *Discharge Medications: Continue RX: Lisinopril [Prinivil] 5 mg PO DAILY RX: Atorvastatin Calcium 10 mg PO HS RX: Atenolol [Tenormin] 25 mg PO DAILY RX: Metformin HCl 1,000 mg PO BID RX: Insulin Detemir [Levemir] 16 unit SQ HS RX: Aspirin [Aspirin EC] 81 mg PO DAILY RX: Insulin Aspart [NovoLOG] 6 unit SQ TIDWM RX: Nitroglycerin 0.4 mg SL Q5MIN3 PRN #0 PRN Reason: Chest Pain RX: Escitalopram [Lexapro] 10 mg PO BID - Discharge Packet/Instructions *Diet: 2000 KCAL ADA low sodium, heart healthy *Activity: As tolerated. Minimize repeative upper extremity activities. *Pain Management/Treatment: Tylenol okay to use for discomfort. *Wound Care: Continue wound care as outlined by wound clinic. Continue to follow with wound center. *Expected Signs/Symptoms: Gradual decrease of chest wall pain with time. *Notify Physician if: Temp >100.4. Increasing shortness of air. *During Business Hours Contact: Dr Saez - Referrals/Follow Up *Referrals/Follow Up: Katia Saez MD [Family Provider] - 1 Week ([facility] follow up for chest pain from costocondritis. APPOINTMENT ON 06/25 AT 2:30.) - Patient Handouts - Dismissal Complete Discharge Instructions are:: Complete Physician Narrative - Narrative Physician: Dexter Vilchis MD Attestation Narrative: Date: 06/19/17 Time: 1451 I have independently interviewed and examined patient prior to discharge. See my progress note for details. Medically stable for discharge to home.
== END 2017-06-19 15:40 | disposition home or self-care (01) ==
LOC: MED 12:24 → ED 12:24 → MED 14:38
PROVIDERS: ADMIT Hospitalist; ATTEND Hospitalist